=== PATIENT | female | born 1985 | race Caucasian/White ===

== ENCOUNTER 2016-11-08 15:43 | Emergency (ER) | payer OTHER ==
[2016-11-08] MEDS ORDERED: ONDANSETRON ODT 4 MG TABLET TL STA (17:13)
[2016-11-08] MEDS ORDERED: ONDANSETRON ODT 4 MG TABLET ONE (17:27)
--- NOTE | 2016-11-08 18:01 | CT Preliminary Report ---
Exam: CT Head W/O IMPRESSION: No acute intracranial abnormality. [facility] SITE ID: [id number]
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
[2016-11-08 18:27] VITALS: BP 128/78
== END 2016-11-08 18:25 | disposition home or self-care (01) ==
LOC: ED 15:43
DX: S06.0X0A Concussion without loss of consciousness, initial encounter (principal); W22.8XXA Striking against or struck by other objects, initial encounter; Y93.89 Activity, other specified; Y99.0 Civilian activity done for income or pay; R03.0 Elevated blood-pressure reading, without diagnosis of hypertension
CPT/HCPCS: 1040M; 70450; 99283; 99284; Q0162

== ENCOUNTER 2017-05-22 15:17 | Emergency (ER) | payer OTHER ==
--- NOTE | 2017-05-22 18:58 | ED Physician Documentation ---
PD HPI DYSPNEA - Stated complaint Stated Complaint: SOA/PALPITATIONS - Chief complaint Chief Complaint: Resp - History obtained from History obtained from: Patient - History of Present Illness Timing - onset: How many days ago (5-6 days of intermittent palpitations, feeling like somehting "is flopping over in my chest".) Timing - onset during: Other (intermittent). No: Light activity, Exertion Timing - duration: Seconds Timing - details: Intermittant Inciting event(s): No: URI, Immobilization/travel Improved by: No: Rest, Sitting up Worsened by: No: Exertion, Laying flat Associated symptoms: Palpitations. No: Fever, Cough, Wheezing, Chest pain / discomfort, Bilateral edema, Anxiety Similar symptoms before: Has not had sx before Recently seen: Not recently seen Review of Systems Constitutional: denies: Fever, Chills Nose: denies: Rhinorrhea / runny nose, Congestion Throat: denies: Sore throat Cardiac: reports: Palpitations. 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, 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 - Present Medications Home Medications: Ambulatory Orders Medication Instructions Recorded Confirmed No Known Home Medications [No 05/22/17 05/22/17 Known Home Medications] - Allergies Allergies/Adverse Reactions: Allergies Allergy/AdvReac Type Severity Reaction Status Date / Time hydrocodone bitartrate * AdvReac Unknown Verified 11/08/16 16:35 [From Vicodin] - Social History Does the pt smoke?: No Smoking Status: Never smoker Does the pt drink ETOH?: Yes Does the pt have substance abuse?: No - Immunizations Immunizations are current?: Yes - POLST Patient has POLST: No PD ED PE NORMAL - Vitals Vital signs reviewed: Yes - General General: Alert and oriented X 3, Well developed/nourished - HEENT HEENT: Ears normal, Pharynx benign - Neck Neck: Supple, no meningeal sign, No adenopathy, Thyroid normal - Cardiac Cardiac: RRR, No murmur - Respiratory Respiratory: Clear bilaterally - Abdomen Abdomen: Soft, Non tender - Derm Derm: Normal color, Warm and dry - Neuro Neuro: Alert and oriented X 3, No motor deficit, Normal speech Results - Vitals Vitals: Oxygen O2 Source Room air - EKG (time done) 16:01 Rate: Rate (enter#) (61) Rhythm: NSR Bliss: Normal Intervals: Normal [place] QRS: Normal Ischemia: Normal ST segments. No: ST elevation c/w ischemia, ST depression Compare to prior EKG: Unchanged from prior EKG - Labs Labs: Laboratory Tests 05/22/17 05/22/17 05/22/17 19:25 19:25 19:25 WBC 8.6 RBC 4.55 Hgb 12.9 Hct 37.1 MCV 81.5 MCH 28.4 MCHC 34.9 RDW 12.8 Plt Count 243 MPV 8.2 Neut # 6.0 Lymph # 2.0 Finney # 0.4 Eos # 0.1 Baso # 0.1 Absolute Nucleated RBC 0.00 Nucleated RBC % 0.0 Sodium 136 Potassium 3.8 Chloride 104 Carbon Dioxide 24 Anion Gap 8.0 BUN 17 Creatinine 0.6 Estimated GFR (MDRD) 115 Glucose 102 H Calcium 9.2 Magnesium 1.9 Total Bilirubin 0.6 AST 15 ALT 16 Alkaline Phosphatase 45 Total Protein 7.7 Albumin 4.6 Globulin 3.1 Albumin/Globulin Ratio 1.5 Lipase 28 TSH 1.88 PD MEDICAL DECISION MAKING - ED course Complexity details: considered differential (mainly describes palpitations. Does not have aonginal component. Could consider ECHO or such through PCP if persists. Does not drink caffeine. ), d/w patient Departure - Departure Disposition: Home, Self Care Clinical Impression: Heart palpitations Condition: Stable Record reviewed to determine appropriate education?: Yes Instructions: ED Palpitations Follow-Up: BETINA Anderson [Provider Group] Comments: Your electrolytes and blood count are normal here. Your thyroid screen is normal. Your heart monitor did not show any obvious irregularities. Her presume the palpitations you are having more just extra beats and are typically benign. Drink lots of fluids. Follow-up with your primary care if you continue at a annoying frequency. Discharge Date/Time: 05/22/17 20:28
[2017-05-22 19:35] LABS: BASOPHILS # (AUTO) 0.1 10^3/uL (0.0-0.1); BASOPHILS % (AUTO) 0.7 %; EOSINOPHILS # (AUTO) 0.1 10^3/uL (0.0-0.7); EOSINOPHILS % (AUTO) 1.2 %; HGB - HEMOGLOBIN 12.9 g/dL (12.0-16.0); LYMPHOCYTES % (AUTO) 23.1 %; MEAN CORPUSCULAR HEMOGLOBIN 28.4 pg (27.0-31.0); MEAN CORPUSCULAR HGB CONC 34.9 g/dL (32.0-36.0); MEAN CORPUSCULAR VOLUME 81.5 fL (81.0-99.0); MEAN PLATELET VOLUME 8.2 fL (7.9-10.8); MONOCYTES # (AUTO) 0.4 10^3/uL (0.0-1.0); MONOCYTES % (AUTO) 4.9 %; NEUTROPHILS % (AUTO) 70.1 %; PLT - PLATELET COUNT 243 10^3/uL (130-450); RED BLOOD COUNT 4.55 10^6/uL (4.20-5.40); RED CELL DISTRIBUTION WIDTH 12.8 % (12.0-15.0); WHITE BLOOD COUNT 8.6 x10^3/uL (4.8-10.8)
[2017-05-22 19:54] LABS: ALBUMIN 4.6 g/dL (3.2-5.5); ALBUMIN/GLOBULIN RATIO 1.5 (1.0-2.2); BILIRUBIN,TOTAL 0.6 mg/dL (0.2-1.0); CALCIUM 9.2 mg/dL (8.5-10.3); CREATININE 0.6 mg/dL (0.4-1.0); MAGNESIUM 1.9 mg/dL (1.7-2.8); TOTAL PROTEIN 7.7 g/dL (6.7-8.2)
[2017-05-22 20:29] VITALS: BP 139/76
== END 2017-05-22 20:28 | disposition home or self-care (01) ==
LOC: ED 15:17
DX: R00.2 Palpitations (principal)
CPT/HCPCS: 36415; 80053; 83690; 83735; 84443; 85025; 93005; 99283

== ENCOUNTER 2017-12-27 21:17 | Outpatient (CLI) | payer OTHER | END 2017-12-27 21:18 | disposition critical access hospital (66) | LOC: EMS 21:17 | PROVIDERS: ATTEND Surgery | DX: R46.4 Slowness and poor responsiveness (principal) | CPT/HCPCS: A0425; A0427 ==

== ENCOUNTER 2017-12-27 21:31 | Emergency (ER) | payer OTHER ==
[2017-12-27 21:54] LABS: BASOPHILS # (AUTO) 0.1 10^3/uL (0.0-0.1); BASOPHILS % (AUTO) 1.4 %; EOSINOPHILS # (AUTO) 0.1 10^3/uL (0.0-0.7); EOSINOPHILS % (AUTO) 2.2 %; HGB - HEMOGLOBIN 13.5 g/dL (12.0-16.0); LYMPHOCYTES # (AUTO) 1.7 10^3/uL (1.5-3.5); LYMPHOCYTES % (AUTO) 28.1 %; MEAN CORPUSCULAR HGB CONC 36.1 g/dL (32.0-36.0); MEAN CORPUSCULAR VOLUME 83.2 fL (81.0-99.0); MEAN PLATELET VOLUME 8.3 fL (7.9-10.8); MONOCYTES # (AUTO) 0.4 10^3/uL (0.0-1.0); NEUTROPHILS # (AUTO) 3.8 10^3/uL (1.5-6.6); NEUTROPHILS % (AUTO) 61.3 %; PLT - PLATELET COUNT 253 10^3/uL (130-450); RED BLOOD COUNT 4.51 10^6/uL (4.20-5.40); RED CELL DISTRIBUTION WIDTH 12.8 % (12.0-15.0); WHITE BLOOD COUNT 6.1 x10^3/uL (4.8-10.8)
[2017-12-27 22:08] LABS: ALBUMIN 4.9 g/dL (3.2-5.5); ALBUMIN/GLOBULIN RATIO 1.8 (1.0-2.2); ALKALINE PHOSPHATASE 47 IU/L (42-121); ALT ALANINE AMINOTRANSFERASE 14 IU/L (10-60); AST ASPARTATE AMINOTRANSFERASE 16 IU/L (10-42); BILIRUBIN,TOTAL 0.6 mg/dL (0.2-1.0); BUN - BLOOD UREA NITROGEN 18 mg/dL (6-20); CALCIUM 9.4 mg/dL (8.5-10.3); CARBON DIOXIDE - CO2 27 mmol/L (21-32); CHLORIDE 103 mmol/L (101-111); CREATININE 0.8 mg/dL (0.4-1.0); GFR - MDRD 82 (>89); GLUCOSE 106 mg/dL (70-100); LIPASE 38 U/L (22-51); MAGNESIUM 2.3 mg/dL (1.7-2.8); PHOSPHORUS 3.6 mg/dL (2.5-4.6); SODIUM 138 mmol/L (135-145); TOTAL PROTEIN 7.7 g/dL (6.7-8.2)
--- NOTE | 2017-12-27 22:18 | XRAY Report ---
Reason: chest pain Procedure Date: 12/27/2017 Accession Number: [id number] / [id number] Procedure: XR - Chest 1 View X-Ray CPT Code: 98963 FULL RESULT: EXAM: CHEST RADIOGRAPHY EXAM DATE: 12/27/2017 09:46 PM. CLINICAL HISTORY: Chest pain. COMPARISON: None. TECHNIQUE: 1 view. FINDINGS: Lungs/Pleura: No focal opacities evident. No pleural effusion. No pneumothorax. Mediastinum: Within exam limitations, the cardiomediastinal contour is normal. Other: None. IMPRESSION: Normal single view chest. [facility]
[2017-12-27 22:36] VITALS: BP 136/73
--- NOTE | 2017-12-27 22:37 | ED Physician Documentation ---
History of Present Illness - Stated complaint Stated Complaint: CARDIAC EVENT - Chief complaint Chief Complaint: Cardiac - History obtained from History obtained from: Patient, EMS - History of Present Illness Timing: Today - Additonal information Additional information: Patient is a 32 year old female with a history of svt who is presenting to the emergency department for syncopal episode. patient states that her heart rate was 170 and she took her sotalol. Patient's heart rate slowed down but according to patient's friends patient passed out and was unresponsive so they called ems. When ems arrived patient was in a chair. Patient responded to painful stimuli and if her arm was dropped over her face she would prevent getting it it. upon initial evaluation in the emergency department patient was easily arousable with normal vital signs. 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 - Present Medications Home Medications: Ambulatory Orders Medication Instructions Recorded Confirmed Sotalol [Betapace] 80 mg PO PRN 12/27/17 - Allergies Allergies/Adverse Reactions: Allergies Allergy/AdvReac Type Severity Reaction Status Date / Time latex Allergy Anaphylaxis Verified 12/27/17 21:43 hydrocodone bitartrate * AdvReac Unknown Verified 11/08/16 16:35 [From Vicodin] - Social History Does the pt smoke?: No Smoking Status: Never smoker Does the pt drink ETOH?: Yes Does the pt have substance abuse?: No Substance Use and Type: Marijuana - Immunizations Immunizations are current?: Yes - POLST Patient has POLST: No PD ED PE NORMAL - General General: No acute distress, Well developed/nourished - HEENT HEENT: Atraumatic, PERRL - Neck Neck: No JVD - Cardiac Cardiac: RRR, No murmur - Respiratory Respiratory: No respiratory distress - Abdomen Abdomen: Soft, Non tender, Non distended - Derm Derm: Normal color, Warm and dry - Extremities Extremities: No deformity - Neuro Eye Opening: To Voice Motor: Withdraws to Pain Verbal: Confused GCS Score: 11 Results - Vitals Vitals: Vital Signs - 24 hr 12/27/17 12/27/17 21:35 22:06 Temperature 36.6 C Heart Rate 55 L 52 L Respiratory 16 15 Rate Blood Pressure 134/79 H 135/85 H O2 Saturation 99 95 Oxygen O2 Source Room air - EKG (time done) 2138 Rate: Rate (enter#) (66) Rhythm: NSR [place]: Normal Intervals: Normal [place] Compare to prior EKG: Unchanged from prior EKG Computer interpretation: Disagree with computer - Labs Labs: Laboratory Tests 12/27/17 12/27/17 12/27/17 21:50 21:50 21:50 WBC 6.1 RBC 4.51 Hgb 13.5 Hct 37.5 MCV 83.2 MCH 30.0 MCHC 36.1 H RDW 12.8 Plt Count 253 MPV 8.3 Neut # (Auto) 3.8 Lymph # (Auto) 1.7 Campbell # (Auto) 0.4 Eos # (Auto) 0.1 Baso # (Auto) 0.1 Absolute Nucleated RBC 0.00 Nucleated RBC % 0.1 Sodium 138 Potassium 3.9 Chloride 103 Carbon Dioxide 27 Anion Gap 8.0 BUN 18 Creatinine 0.8 Estimated GFR (MDRD) 82 L Glucose 106 H Calcium 9.4 Phosphorus 3.6 Magnesium 2.3 Total Bilirubin 0.6 AST 16 ALT 14 Alkaline Phosphatase 47 Troponin I < 0.04 Total Protein 7.7 Albumin 4.9 Globulin 2.8 Albumin/Globulin Ratio 1.8 Lipase 38 TSH 12/27/17 21:50 WBC RBC Hgb Hct MCV MCH MCHC RDW Plt Count MPV Neut # (Auto) Lymph # (Auto) Campbell # (Auto) Eos # (Auto) Baso # (Auto) Absolute Nucleated RBC Nucleated RBC % Sodium Potassium Chloride Carbon Dioxide Anion Gap BUN Creatinine Estimated GFR (MDRD) Glucose Calcium Phosphorus Magnesium Total Bilirubin AST ALT Alkaline Phosphatase Troponin I Total Protein Albumin Globulin Albumin/Globulin Ratio Lipase TSH 3.62 PD MEDICAL DECISION MAKING - ED course Complexity details: reviewed old records, reviewed results, re-evaluated patient, considered differential, d/w patient, d/w family ED course: Patient was seen and examined at bedside. ekg was performed and showed diffuse q wave inflections but was unchanged from previous. patient's diagnostics were all within normal limits and patient became more responsive. The case was discussed with the patient and her significant other. Apparently this has happened multiple times after taking her medication. A lengthy discussion was had concerning vasalava maneuvers and appropriate follow up. patient required no further work up and was stable for discharge with outpatient follow up. - Sepsis Event Vital Signs: Vital Signs - 24 hr 12/27/17 12/27/17 21:35 22:06 Temperature 36.6 C Heart Rate 55 L 52 L Respiratory 16 15 Rate Blood Pressure 134/79 H 135/85 H O2 Saturation 99 95 Oxygen O2 Source Room air Departure - Departure Disposition: 01 Home, Self Care Clinical Impression: SVT (supraventricular tachycardia) Condition: Good Instructions: Treatment for Supraventricular Tachycardia SVT Follow-Up: primary,care provider [Other] - As Needed Comments: Your diagnostics today were within normal limits. Your symptoms were likely secondary to the svt and the medication side effect. Due to your reaction to the medication I would give the vagal treatments more time. The most successful one has been blowing out the syringe for 15 seconds, while in a sitting position, then lie back flat and have someone life your legs. You should talk to your doctor about your medication reactions. you may return to the emergency department at any time for new worsening or uncontrollable symptoms. Discharge Date/Time: 12/27/17 23:02
== END 2017-12-27 23:02 | disposition home or self-care (01) ==
LOC: EDUNIT# → EDBD → ED 21:31
DX: I47.1 Supraventricular tachycardia (principal)
CPT/HCPCS: 36415; 71045; 80053; 80320; 83690; 83735; 84100; 84443; 84484; 85025; 93005; 99283; 99284

== ENCOUNTER 2018-01-17 21:18 | Outpatient (CLI) | payer OTHER | END 2018-01-17 21:19 | disposition critical access hospital (66) | LOC: EMS 21:18 | PROVIDERS: ATTEND Surgery | DX: R55 Syncope and collapse (principal); R07.9 Chest pain, unspecified | CPT/HCPCS: A0425; A0427 ==

== ENCOUNTER 2018-01-17 21:33 | Emergency (ER) | payer OTHER ==
[2018-01-17 22:30] LABS: BASOPHILS # (AUTO) 0.1 10^3/uL (0.0-0.1); BASOPHILS % (AUTO) 0.9 %; EOSINOPHILS # (AUTO) 0.1 10^3/uL (0.0-0.7); EOSINOPHILS % (AUTO) 1.8 %; HGB - HEMOGLOBIN 12.8 g/dL (12.0-16.0); LYMPHOCYTES # (AUTO) 1.4 10^3/uL (1.5-3.5); MEAN CORPUSCULAR HEMOGLOBIN 29.8 pg (27.0-31.0); MEAN CORPUSCULAR HGB CONC 35.5 g/dL (32.0-36.0); MEAN PLATELET VOLUME 8.3 fL (7.9-10.8); MONOCYTES # (AUTO) 0.6 10^3/uL (0.0-1.0); MONOCYTES % (AUTO) 7.3 %; NEUTROPHILS # (AUTO) 5.5 10^3/uL (1.5-6.6); PLT - PLATELET COUNT 225 10^3/uL (130-450); RED CELL DISTRIBUTION WIDTH 12.7 % (12.0-15.0); WHITE BLOOD COUNT 7.6 x10^3/uL (4.8-10.8)
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
[2018-01-17 22:46] LABS: ALBUMIN 4.5 g/dL (3.2-5.5); ALBUMIN/GLOBULIN RATIO 1.7 (1.0-2.2); BILIRUBIN,TOTAL 0.6 mg/dL (0.2-1.0); CALCIUM 8.7 mg/dL (8.5-10.3); CREATININE 0.6 mg/dL (0.4-1.0); TOTAL PROTEIN 7.2 g/dL (6.7-8.2)
--- NOTE | 2018-01-17 22:53 | XRAY Report ---
Reason: chest pain Procedure Date: 01/17/2018 Accession Number: [id number] / [id number] Procedure: XR - Chest 2 View X-Ray CPT Code: 78893 FULL RESULT: EXAM: CHEST RADIOGRAPHY EXAM DATE: 01/17/2018 10:42 PM. CLINICAL HISTORY: Chest pain. COMPARISON: CHEST 1 VIEW 12/27/2017 9:46 PM. TECHNIQUE: 2 views. FINDINGS: Lungs/Pleura: No alveolar consolidation or pleural effusion seen. No pneumothorax. Mediastinum: Heart and mediastinal contours are unremarkable. Other: None. IMPRESSION: 1. No acute abnormality seen in the chest. RADIA
[2018-01-17] MEDS ORDERED: POTASSIUM BICARB 25 MEQ TABLET PO STA (23:27)
[2018-01-17 23:37] LABS: MUDS CUTOFF CONCENTRATIONS CUTOFF CONC BELOW:
[2018-01-17 23:40] LABS: BILIRUBIN,URINE NEGATIVE (NEGATIVE); GLUCOSE, URINE (UA) NEGATIVE (NEGATIVE); KETONES,URINE (UA) NEGATIVE (NEGATIVE); LEUKOCYTE ESTERASE, URINE NEGATIVE (NEGATIVE); NITRITE,URINE NEGATIVE (NEGATIVE); OCCULT BLOOD,URINE MODERATE (NEGATIVE); PH,URINE 5.5 PH (5.0-7.5); PROTEIN,URINE NEGATIVE (NEGATIVE); UROBILINOGEN,URINE 0.2 (NORMAL) E.U./dL (NORMAL)
[2018-01-17 23:42] LABS: CLARITY,URINE CLEAR (CLEAR); HCG UR QUAL NEGATIVE
[2018-01-17 23:46] LABS: BACTERIA,URINE Rare /HPF (None Seen); RBC,URINE 0-5 /HPF (0-5); SQUAMOUS EPITHELIAL CELL,UR FEW Squamous (<= Few)
[2018-01-17 23:50] LABS: AMPHETAMINE SCREEN,URINE NEGATIVE (NEGATIVE); BENZODIAZEPINES SCREEN, URINE NEGATIVE (NEGATIVE); COCAINE SCREEN URINE NEGATIVE (NEGATIVE); METHADONE SCREEN, URINE NEGATIVE (NEGATIVE); METHAMPHETAMINES SCREEN, URINE NEGATIVE (NEGATIVE); OPIATE SCREEN, URINE NEGATIVE (NEGATIVE); OXYCODONE SCREEN, URINE NEGATIVE (NEGATIVE); PROPOXYPHENE SCREEN, URINE NEGATIVE (NEGATIVE); TRICYCLIC ANTIDEPRESSANT,URINE NEGATIVE (NEGATIVE)
[2018-01-18 00:05] VITALS: BP 116/72
== END 2018-01-18 00:05 | disposition home or self-care (01) ==
LOC: EDUNIT# → ED 21:33
DX: I47.1 Supraventricular tachycardia (principal); F43.9 Reaction to severe stress, unspecified
CPT/HCPCS: 36415; 71046; 80053; 80306; 81001; 81025; 83690; 84443; 84484; 85025; 93005; 99284; A9270; 81003; 87086

== ENCOUNTER 2020-03-13 17:05 | Outpatient (CLI) | payer OTHER | END 2020-03-13 17:06 | disposition critical access hospital (66) | LOC: EMS 17:05 | PROVIDERS: ATTEND Surgery | DX: Z04.1 Encounter for examination and observation following transport accident (principal); M54.2 Cervicalgia; M54.9 Dorsalgia, unspecified | CPT/HCPCS: A0425; A0429 ==

== ENCOUNTER 2020-03-13 17:21 | Emergency (ER) | payer OTHER ==
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
[2020-03-13 18:51] VITALS: BP 127/73
== END 2020-03-13 18:51 | disposition home or self-care (01) ==
LOC: EDUNIT# → ED 17:21
DX: M54.6 Pain in thoracic spine (principal); M54.2 Cervicalgia; V49.40XA Driver injured in collision with unspecified motor vehicles in traffic accident, initial encounter
CPT/HCPCS: 72125; 72128; 99282; 99284

== ENCOUNTER 2023-07-26 12:43 | Emergency (ER) | payer OTHER ==
[2023-07-26 13:40] LABS: BASOPHILS # (AUTO) 0.1 10^3/uL (0.0-0.1); BASOPHILS % (AUTO) 0.9 %; EOSINOPHILS # (AUTO) 0.2 10^3/uL (0.0-0.7); EOSINOPHILS % (AUTO) 1.9 %; HCT - HEMATOCRIT 37.9 % (37.0-47.0); HGB - HEMOGLOBIN 12.8 g/dL (12.0-16.0); LYMPHOCYTES # (AUTO) 1.6 10^3/uL (1.5-3.5); LYMPHOCYTES % (AUTO) 21.1 %; MEAN CORPUSCULAR HEMOGLOBIN 28.6 pg (27.0-31.0); MEAN CORPUSCULAR HGB CONC 33.8 g/dL (32.0-36.0); MEAN CORPUSCULAR VOLUME 84.6 fL (81.0-99.0); MEAN PLATELET VOLUME 10.5 fL (7.9-10.8); MONOCYTES # (AUTO) 0.5 10^3/uL (0.0-1.0); MONOCYTES % (AUTO) 6.1 %; NEUTROPHILS # (AUTO) 5.4 10^3/uL (1.5-6.6); NEUTROPHILS % (AUTO) 69.6 %; PLT - PLATELET COUNT 239 10^3/uL (130-450); RED BLOOD COUNT 4.48 10^6/uL (4.20-5.40); RED CELL DISTRIBUTION WIDTH 12.4 % (12.0-15.0); WHITE BLOOD COUNT 7.8 x10^3/uL (4.8-10.8)
[2023-07-26 13:49] LABS: ALBUMIN 4.6 g/dL (3.2-5.5); ALBUMIN/GLOBULIN RATIO 1.7 (1.0-2.2); BILIRUBIN,TOTAL 0.4 mg/dL (0.2-1.0); CALCIUM 9.9 mg/dL (8.5-10.3); CREATININE 0.7 mg/dL (0.6-1.3); MAGNESIUM 1.7 mg/dL (1.7-2.3); POTASSIUM 3.5 mmol/L (3.5-4.5); TOTAL PROTEIN 7.3 g/dL (6.4-8.9)
[2023-07-26 14:05] LABS: THYROID STIMULATING HORMONE 3.38 uIU/mL (0.34-5.60)
--- NOTE | 2023-07-26 14:41 | XRAY Report ---
PROCEDURE: Chest 1V INDICATIONS: chest pain TECHNIQUE: One view of the chest was acquired. COMPARISON: 01/17/2018. FINDINGS: Surgical changes and devices: None. Lungs and pleura: No pleural effusions or pneumothorax. Lungs are clear. Mediastinum: Mediastinal contours appear normal. Heart size is normal. Bones and chest wall: No suspicious bony lesions. Overlying soft tissues appear unremarkable. IMPRESSION: No acute cardiopulmonary process. Reviewed by: Killian Aguilera MD on 07/26/2023 2:40 PM PDT Approved by: Killian Aguilera MD on 07/26/2023 2:40 PM PDT Station ID: [id number]
--- NOTE | 2023-07-26 15:41 | ED Physician Documentation ---
History of Present Illness - Stated complaint Stated Complaint: HIGH BP, SOA, DIZZINESS - Chief complaint Chief Complaint: General - History obtained from History obtained from: Patient - History of Present Illness Timing: Today Pain level max: 0 Pain level now: 0 - Additonal information Additional information: 38-year-old female presents to the emergency department stating that she is just felt generally unwell today. Unable to describe this any further. She states earlier she felt mildly dizzy and lightheaded. No chest pain. She states earlier she felt mild shortness of breath. 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 Currently the patient states she just feels tired. No fevers. No chills. No cough, congestion, nausea, vomiting, diarrhea. 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 - Present Medications Home Medications: Ambulatory Orders Medication Instructions Recorded Confirmed No Known Home Medications 03/13/20 07/26/23 - Allergies Allergies/Adverse Reactions: Allergies Allergy/AdvReac Type Severity Reaction Status Date / Time latex Allergy Anaphylaxis Verified 07/26/23 13:15 hydrocodone bitartrate * AdvReac Unknown Verified 07/26/23 13:15 [From Vicodin] - Social History Does the pt smoke?: No Smoking Status: Never smoker Does the pt drink ETOH?: Yes Does the pt have substance abuse?: No - Immunizations Immunizations are current?: Yes - POLST Patient has POLST: No PD ED PE NORMAL - Vitals Vital signs reviewed: Yes - General General: Alert and oriented X 3, No acute distress - HEENT HEENT: PERRL, EOMI, Ears normal, Moist mucous membranes, Pharynx benign - Neck Neck: Supple, no meningeal sign, No JVD, No bruit - Cardiac Cardiac: RRR, No murmur, Strong equal pulses - Respiratory Respiratory: No respiratory distress, Clear bilaterally - Abdomen Abdomen: Soft, Non tender, Non distended - Derm Derm: Warm and dry, No rash - Neuro Neuro: Alert and oriented X 3, commercial reporter 2-12 intact, No motor deficit, No sensory deficit, Normal speech Eye Opening: Spontaneous Motor: Obeys Commands Verbal: Oriented GCS Score: 15 - Psych Psych: Normal mood, Normal affect Results - Vitals Vitals: Vital Signs - 24 hr 07/26/23 07/26/23 12:57 16:08 Temperature 36.7 C 36.4 C L Heart Rate 66 55 L Respiratory 16 18 Rate Blood Pressure 167/82 H 135/84 H O2 Saturation 100 99 Oxygen O2 Source Room air - EKG (time done) 1310 EKG releavant findings:: EKG personally interpreted by author of this note. Relevant findings are: Rate: Rate (enter#) (59) Rhythm: NSR [place]: Normal Intervals: Normal [place] QRS: Normal Ischemia: Normal ST segments - Labs Labs: Laboratory Tests 07/26/23 07/26/23 07/26/23 13:29 13:29 13:29 WBC 7.8 RBC 4.48 Hgb 12.8 Hct 37.9 MCV 84.6 MCH 28.6 MCHC 33.8 RDW 12.4 Plt Count 239 MPV 10.5 Neut # (Auto) 5.4 Lymph # (Auto) 1.6 [place] # (Auto) 0.5 Eos # (Auto) 0.2 Baso # (Auto) 0.1 Absolute Nucleated RBC 0.00 Nucleated RBC % 0.0 Sodium 136 Potassium 3.5 Chloride 105 Carbon Dioxide 25 Anion Gap 6.0 BUN 17 Creatinine 0.7 Estimated GFR (MDRD) 93 Glucose 120 H Calcium 9.9 Magnesium 1.7 Total Bilirubin 0.4 AST 21 ALT 41 Alkaline Phosphatase 54 Troponin I High Sens B-Natriuretic Peptide 60 Total Protein 7.3 Albumin 4.6 Globulin 2.7 Albumin/Globulin Ratio 1.7 Lipase 41 TSH 3.38 07/26/23 13:29 WBC RBC Hgb Hct MCV MCH MCHC RDW Plt Count MPV Neut # (Auto) Lymph # (Auto) [place] # (Auto) Eos # (Auto) Baso # (Auto) Absolute Nucleated RBC Nucleated RBC % Sodium Potassium Chloride Carbon Dioxide Anion Gap BUN Creatinine Estimated GFR (MDRD) Glucose Calcium Magnesium Total Bilirubin AST ALT Alkaline Phosphatase Troponin I High Sens 2.3 B-Natriuretic Peptide Total Protein Albumin Globulin Albumin/Globulin Ratio Lipase TSH - Rads (name of study) cxr Relevant Findings:: Final report received, See rad report PD Medical Decision Making - ED course Complexity details: reviewed results, re-evaluated patient, considered differential, d/w patient, d/w [facility] consultant ED course: Unclear etiology of the patient's feeling of malaise today, suspect that it is an early viral syndrome. No significant lab abnormalities. No acute findings on EKG, chest x-ray, laboratory testing. Negative high sensitive troponin. No focal neurological deficits. GCS 15. No arrhythmias on telemetry. 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 Will have her follow-up with her PCP for further care and return if she worsens. Patient counseled regarding signs and symptoms for which I believe and urgent re-evaluation would be necessary. Patient with good understanding of and agreement to plan and is comfortable going home at this time This document was made in part using voice recognition software. While efforts are made to proofread this document, sound alike and grammatical errors may occur. Departure - Departure Disposition: 01 Home, Self Care Clinical Impression: Malaise and fatigue Condition: Good Instructions: ED Viral Syndrome Follow-Up: your,doctor in 1 week if not better [Other] Comments: Your EKG, chest x-ray, color television console monitor and laboratory testing did not show any acute abnormalities today to explain your symptoms. It is possible that you are developing a viral syndrome and may develop further symptoms later today. Would recommend staying well-hydrated at home. Please return if you worsen. Forms: PCP List Discharge Date/Time: 07/26/23 16:12
[2023-07-26 16:13] VITALS: BP 135/84; O2SAT 99
== END 2023-07-26 16:12 | disposition home or self-care (01) ==
LOC: ED 12:43
DX: R53.81 Other malaise (principal); R53.83 Other fatigue
CPT/HCPCS: 36415; 80053; 83690; 83735; 83880; 84443; 84484; 85025; 93005; 99283; 99284